=== PATIENT | female | born 1945 | race Caucasian/White ===

== ENCOUNTER 2016-10-20 10:06 | Day surgery (SDC) | payer OTHER, MEDICARE ==
--- NOTE | ~2016-10-20 | EGD ---
EGD REPORT [facility] [address] [address] NAME: KATHIA ALVAREZ : [birth year] STATUS : REG [facility]#: [id number] AGE: 71 ADM/REG DATE : 10/20/16 MR#: [id number] REPORT SERV DATE: 10/20/16 DICTATED BY: DATE: REPORT STATUS : Draft TRANSCRIBED BY: [employer] DATE: 10/20/16 [facility] Patient Name: Kathia Alvarez Date of : 1945 Attending MD: YOAV ORTIZ MD Procedure Date No Time: 10/20/2016 Procedure: Colonoscopy Indications: Abnormal CT of the GI tract Referring MD: Joby Butler MD Medicines: Monitored Anesthesia Care Complications: No immediate complications. Procedure: Pre-Anesthesia Assessment: - ASA Grade Assessment: III - A patient with severe systemic disease. After I obtained informed consent, the scope was passed under direct vision. Throughout the procedure, the patient's blood pressure, pulse, and oxygen saturations were monitored continuously. The PCF [id number] was introduced through the anus and advanced to the cecum, identified by appendiceal orifice and ileocecal valve. The colonoscopy was performed without difficulty. The patient tolerated the procedure well. The quality of the bowel preparation was good. Findings: The perianal and digital rectal examinations were normal. Multiple small and large-mouthed diverticula were found in the entire colon. No other significant abnormalities were identified in a careful examination of the remainder of the colon. There is no endoscopic evidence of erythema, mass, polyps, stricture or ulcerations in the entire colon. Anal papilla(e) were hypertrophied. No additional abnormalities were found on retroflexion. Impression: - Diverticulosis in the entire examined colon. - Anal papilla(e) were hypertrophied. Recommendation: - Patient has a contact number available for emergencies. The signs and symptoms of potential delayed complications were discussed with the patient. Return to normal activities tomorrow. Written discharge instructions were provided to the patient. - High fiber diet. - Continue present medications. EGD REPORT [address] [address] NAME: KATHIA ALVAREZ : [birth year] STATUS : REG [facility]#: [id number] AGE: 71 ADM/REG DATE : 10/20/16 MR#: [id number] REPORT SERV DATE: 10/20/16 DICTATED BY: DATE: REPORT STATUS : Draft TRANSCRIBED BY: [employer] DATE: 10/20/16 - Repeat colonoscopy in 10 years for screening purposes. - Use Miralax + a spoonful of Benefiber or Citrocel mixed in daily. If BM too loose, then reduce Miralax to 1/2 dose daily. Procedure Code(s): --- Professional --- 50509, Colonoscopy, flexible, proximal to splenic flexure; diagnostic, with or without collection of specimen(s) by brushing or washing, with or without colon decompression (separate procedure) Diagnosis Code(s): --- Professional --- K57.30, Diverticulosis of large intestine without perforation or abscess without bleeding K62.89, Other specified diseases of anus and rectum R93.3, Abnormal findings on diagnostic imaging of other parts of digestive tract CPT copyright 2013 [employer]. All rights reserved. The codes documented in this report are preliminary and upon surgical coder review may be revised to meet current compliance requirements. YOAV ORTIZ MD 10/20/2016 12:25 PM This report has been signed electronically. Number of Addenda: 0 Note Initiated On: 10/20/2016 11:36 AM Scope Withdrawal Time 0 hours 12 minutes 32 seconds [address] [id number]
--- NOTE | ~2016-10-20 | EGD ---
EGD REPORT [facility] [address] [address] NAME: KATHIA ALVAREZ : [birth year] STATUS : REG [facility]#: [id number] AGE: 71 ADM/REG DATE : 10/20/16 MR#: [id number] REPORT SERV DATE: 10/20/16 DICTATED BY: DATE: REPORT STATUS : Draft TRANSCRIBED BY: [employer] DATE: 10/20/16 [facility] Center Patient Name: Kathia Alvarez Date of : 1945 Attending MD: YOAV ORTIZ MD Procedure Date No Time: 10/20/2016 Procedure: Upper GI endoscopy Indications: Dysphagia Referring MD: Joby Butler MD Medicines: Monitored Anesthesia Care Complications: No immediate complications. Procedure: Pre-Anesthesia Assessment: - ASA Grade Assessment: III - A patient with severe systemic disease. After obtaining informed consent, the endoscope was passed under direct vision. Throughout the procedure, the patient's blood pressure, pulse, and oxygen saturations were monitored continuously. The GIF H190 [id number] was introduced through the mouth, and advanced to the second part of duodenum. The upper GI endoscopy was accomplished without difficulty. The patient tolerated the procedure well. Findings: Multiple small plaques were found in the upper third of the esophagus and in the middle third of the esophagus. Biopsies were taken with a cold forceps for histology. LA Grade A (one or more mucosal breaks less than 5 mm, not extending between tops of 2 mucosal folds) esophagitis with no bleeding was found at the gastroesophageal junction. A benign-appearing, intrinsic mild stenosis measuring less than one cm (in length) was found at the gastroesophageal junction and was traversed. Biopsies were taken with a cold forceps for histology. A guidewire was placed and the scope was withdrawn. Dilation was performed with a Savary dilator with no resistance at 54 Fr. Patchy mildly erythematous mucosa without bleeding was found in the prepyloric region of the stomach. Biopsies were taken with a cold forceps for histology. Suspect this is due to NSAID use. No other significant abnormalities were identified in a careful examination of the stomach. There is no endoscopic evidence of mucosal abnormalities, ulceration or varices in the entire examined stomach. The examined duodenum was normal. There is no endoscopic evidence of mucosal abnormalities, ulceration or angioectasia in the entire examined duodenum. EGD REPORT [place] [id number] [facility] [place]. [address] NAME: KATHIA ALVAREZ : [birth year] STATUS : REG [facility]#: [id number] AGE: 71 ADM/REG DATE : 10/20/16 MR#: [id number] REPORT SERV DATE: 10/20/16 DICTATED BY: DATE: REPORT STATUS : Draft TRANSCRIBED BY: [employer] DATE: 10/20/16 The cardia and gastric fundus were normal on retroflexion. Impression: - Multiple plaques in the upper third of the esophagus and in the middle third of the esophagus. Biopsied. - LA Grade A reflux esophagitis. - Benign-appearing esophageal stricture. Biopsied. Dilated. - Erythematous mucosa in the prepyloric region of the stomach. Biopsied. - Normal examined duodenum. Recommendation: - Patient has a contact number available for emergencies. The signs and symptoms of potential delayed complications were discussed with the patient. Return to normal activities tomorrow. Written discharge instructions were provided to the patient. - Return to previous diet. - Discharge patient to home. - Continue present medications. - No aspirin, ibuprofen, naproxen, or other non-steroidal anti-inflammatory drugs. - Use Prevacid (lansoprazole) 15 mg PO daily for 8 weeks. - Await pathology results. Procedure Code(s): --- Professional --- 09433, Esophagogastroduodenoscopy, flexible, transoral; with insertion of guide wire followed by passage of dilator(s) through esophagus over guide wire [id number], Esophagogastroduodenoscopy, flexible, transoral; with biopsy, single or multiple Diagnosis Code(s): --- Professional --- K22.8, Other specified diseases of esophagus K21.0, Gastro-esophageal reflux disease with esophagitis K22.2, Esophageal obstruction K31.9, Disease of stomach and duodenum, unspecified R13.10, Dysphagia, unspecified CPT copyright 2013 [employer]. All rights reserved. The codes documented in this report are preliminary and upon land development project manager review may be revised to meet current compliance requirements. YOAV ORTIZ MD 10/20/2016 11:56 AM EGD REPORT [address] [address] NAME: KATHIA ALVAREZ : [birth year] [place] [facility] [place] [id number] AGE: 71 ADM/REG DATE : 10/20/16 MR#: [id number] REPORT SERV DATE: 10/20/16 DICTATED BY: DATE: REPORT STATUS : Draft TRANSCRIBED BY: [employer] DATE: 10/20/16 This report has been signed electronically. Number of Addenda: 0 Note Initiated On: 10/20/2016 11:38 AM Scope Withdrawal Time 0 hours 0 minutes 0 seconds
[~2016-10-20 10:06] MED LIST: AMARYL1 MG PO; BENTYL10 PO; BYDUREON SC; CO Q-1050 MG PO; DITRO5 PO; FISH-EPA1000 MG PO; LANTUS SC; MULTIPLE VIT PO; MULTIVITAMINS; NOVOLOG SC; PRAV10 PO; PRAVAC PO; PRIN10 PO; SYN1 PO; TURMERIC; VITAMIN B PO; VITAMIN D31000 UNIT PO; VITC500 PO
== END 2016-10-20 23:59 | disposition home or self-care (01) ==
LOC: SDC 10:06
PROVIDERS: Internal Medicine Gastroenterology
PROC: 0D747ZZ Dilation of Esophagogastric Junction, Via Natural or Artificial Opening (ICD-10-PCS; 2016-10-20)
PROC: 0DJD8ZZ Inspection of Lower Intestinal Tract, Via Natural or Artificial Opening Endoscopic (ICD-10-PCS; 2016-10-20)
PROC: 0DB18ZX Excision of Upper Esophagus, Via Natural or Artificial Opening Endoscopic, Diagnostic (ICD-10-PCS; principal; 2016-10-20 11:45)
PROC: 0DB68ZX Excision of Stomach, Via Natural or Artificial Opening Endoscopic, Diagnostic (ICD-10-PCS; 2016-10-20 11:45)
PROC: 0DB48ZX Excision of Esophagogastric Junction, Via Natural or Artificial Opening Endoscopic, Diagnostic (ICD-10-PCS; 2016-10-20 11:45)
DX: K21.0 Gastro-esophageal reflux disease with esophagitis (principal); K22.8 Other specified diseases of esophagus; K22.2 Esophageal obstruction; K31.9 Disease of stomach and duodenum, unspecified; K57.30 Diverticulosis of large intestine without perforation or abscess without bleeding; K62.89 Other specified diseases of anus and rectum; R93.3 Abnormal findings on diagnostic imaging of other parts of digestive tract; E66.01 Morbid (severe) obesity due to excess calories; E11.9 Type 2 diabetes mellitus without complications; Z88.2 Allergy status to sulfonamides; Z90.710 Acquired absence of both cervix and uterus; Z98.890 Other specified postprocedural states; Z79.899 Other long term (current) drug therapy; Z79.4 Long term (current) use of insulin
CPT/HCPCS: 82962; 88305